=== PATIENT | female | born 1990 | race Caucasian/White ===

== ENCOUNTER 2017-03-21 10:52 | Emergency (ER) | payer OTHER ==
[~2017-03-21] VITALS: Ht 170.2 cm; Wt 54.4 kg
[~2017-03-21 10:52] MED LIST: ACCUNEB SO1.25 MG/1 INH; ACETAMINOPHEN-1 EAC1 PO; AURALGAN OTIC S14 ML OT; AZITHROMYCIN 2250 MG PO; CLEOCIN HCL300 MG PO; CORTISPORIN OTI10 ML OTIC; DARVOCET-N 1001 EACH PO; HYDROCODON-ACE1 EAC7 PO; IBUPROFEN 800800 MG PO; MECLIZINE HCL25 M1 PO; MEDROLDOSEPACK PO; NOHOMEMEDICATIONS; NORCO 5-325 TA1 EACH PO; ZPAK PO
[2017-03-21] MEDS ORDERED: XANAX 0.5 MG0.5 MG PO (11:01)
[2017-03-21 11:32] LABS: INFLUENZA B ANTIGEN None Detected (None Detect)
[2017-03-21] MEDS ORDERED: TAMIFLU6 MG/1 ML PO (11:39)
[2017-03-21 11:54] VITALS: BP 124/70
== END 2017-03-21 11:54 | disposition home or self-care (01) ==
LOC: M.ERS 10:52
PROVIDERS: Nurse Practitioner Family
DX: J09.X2 Influenza due to identified novel influenza A virus with other respiratory manifestations (principal); J45.909 Unspecified asthma, uncomplicated; F41.9 Anxiety disorder, unspecified; Z88.1 Allergy status to other antibiotic agents; Z88.5 Allergy status to narcotic agent; Z88.6 Allergy status to analgesic agent

== ENCOUNTER 2018-05-10 12:56 | Emergency (ER) | payer OTHER ==
[~2018-05-10] VITALS: Ht 170.2 cm; Wt 49.9 kg
[~2018-05-10 12:56] MED LIST changes: +TAMIFLU6 MG/1 ML PO; +XANAX 0.5 MG0.5 MG PO
[2018-05-10] MEDS ORDERED: FLEXERIL PO (13:06)
[2018-05-10] MEDS ORDERED: NORCO 5-325 TA1 EACH PO (13:06)
[2018-05-10 13:22] LABS: MCV 63.9 fL (80.0-100.0); MPV 8.8 fl. (7.2-11.1); NUCLEATED RBCS 0 /100WBC; WBC 5.9 thou/uL (4.0-11.0)
[2018-05-10 13:24] LABS: HEMATOCRIT 22.7 % (37.0-47.0); MCHC 29.8 g/dL (28.0-37.0); PLATELET COUNT* 340 thou/uL (150-400); RBC 3.56 mil/uL (4.20-5.00); RDW-CV 30.5 % (10.5-14.5)
[2018-05-10 13:33] LABS: HEMOGLOBIN 6.8 gm/dL (12.0-15.0)
[2018-05-10 13:39] LABS: APTT 25.6 Seconds (25.0-31.3); PROTIME 10.5 Seconds (9.20-11.50)
[2018-05-10 13:43] LABS: ALBUMIN 4.2 g/dL (3.4-5.0); CALCIUM 8.9 mg/dL (8.5-10.1); CREATININE 0.8 mg/dL (0.6-1.3); POTASSIUM 3.5 mmol/L (3.5-5.1); TOTAL BILIRUBIN 0.4 mg/dL (<0.1-1.0); TOTAL PROTEIN 7.4 g/dL (6.4-8.2)
[2018-05-10] MEDS ORDERED: IRON325 PO (14:19)
[2018-05-10 14:28] VITALS: BP 95/71
[2018-05-10 14:40] LABS: ABSOLUTE BASOPHILS 0.1 thou/uL (0.0-0.2); ABSOLUTE LYMPHOCYTES 1.3 thou/uL (0.8-5.3); ABSOLUTE MONOCYTES 0.5 thou/uL (0.0-1.2); ABSOLUTE NEUTROPHILS 4.1 thou/uL (1.6-8.1)
[2018-05-10 14:42] LABS: ANISOCYTOSIS 2+; HYPOCHROMASIA 2+; MICROCYTES 2+; OVALOCYTES 1+; PLATELET ESTIMATE ADEQUATE
--- NOTE | 2018-05-11 15:08 | EKG ---
[place] [address] ELECTROCARDIOGRAM REPORT Name: JUAN MENDOZA [id number] Admission: 05/10/18 Attend Phys: Discharge: 05/10/18 Date of : 89 Report #: [id number] THIS REPORT FOR: //name// [facility] ED Test Date: 2018-05-10 Test Time: 13:13:50 Pat Name: JUAN MENDOZA Department: Room: Gender: F Match Up Person: Lino KRAFT : 1990 Requested By: Angel Mendenhall Order Number: [id number] MD: Severo Lennon Measurements Intervals [place] Rate: 74 P: 73 MN: 151 QRS: 82 QRSD: 88 T: 69 QT: 378 QTc: 420 Interpretive Statements Sinus rhythm Probable left atrial enlargement Baseline wander in lead(s) II,aVR No previous ECG available for comparison Electronically Signed On 05-11-2018 15:08:12 CDT by Severo Lennon [email or web address] <ELECTRONICALLY SIGNED> By: Severo Lennon MD, [facility] 05/11/18 1508 1313 1313 Severo Lennon MD, FACC /EPI
== END 2018-05-10 14:29 | disposition home or self-care (01) ==
LOC: M.ERS 12:56
PROVIDERS: Family Medicine
DX: D64.9 Anemia, unspecified (principal); J45.909 Unspecified asthma, uncomplicated; F41.9 Anxiety disorder, unspecified; Z88.1 Allergy status to other antibiotic agents; Z88.5 Allergy status to narcotic agent; Z88.8 Allergy status to other drugs, medicaments and biological substances

== ENCOUNTER 2018-05-28 13:25 | Emergency (ER) | payer OTHER ==
[~2018-05-28] VITALS: Ht 170.2 cm; Wt 52.2 kg
[~2018-05-28 13:25] MED LIST changes: +FLEXERIL PO; +IRON325 PO
[2018-05-28] MEDS ORDERED: NORCO 5-325 TA1 EACH PO (14:38)
[2018-05-28 15:15] VITALS: BP 125/65
== END 2018-05-28 15:16 | disposition home or self-care (01) ==
LOC: M.ERS 13:25
DX: S92.812A Other fracture of left foot, initial encounter for closed fracture (principal); J45.909 Unspecified asthma, uncomplicated; F41.9 Anxiety disorder, unspecified; Z88.1 Allergy status to other antibiotic agents; Z88.5 Allergy status to narcotic agent; Z88.8 Allergy status to other drugs, medicaments and biological substances; W20.8XXA Other cause of strike by thrown, projected or falling object, initial encounter; Y93.89 Activity, other specified; Y92.89 Other specified places as the place of occurrence of the external cause; Y99.8 Other external cause status